=== PATIENT | male | born 1965 | race Caucasian/White ===

== ENCOUNTER 2018-08-13 07:14 | Day surgery (SDC) | payer OTHER ==
[~2018-08-13] VITALS: Ht 180.3 cm; Wt 83.4 kg
[~2018-08-13 07:14] MED LIST: CEPH500 PO; CYCL10 PO; DIAZ10 PO; DOCU100 PO; Excedrin Extra1 EACH PO; GABA100 PO; HYDACE5 PO; HYDMOR2 PO; IBUP800 PO; META800 PO; METPRE4DP PO; NAPR220; NAPR220 PO; NAPR550 PO; OXYACE7.5T; OXYC5 PO; PRED20 PO; Percocet 10-321 EACH PO; RXCEPH500 PO; RXHYDACE PO; RXMETA800 PO
--- NOTE | 2018-08-13 08:20 | NUR ---
08/13/18 0820 Aimee Cotton WHEN DISCUSSED PT LAYING ON HIS LEFT SIDE, HE SHOWED ME A QUARTER SIZED OPEN SORE ON HIS LATERAL THIGH THAT HE WAS CONCERNED ABOUT. I COVERED IT WITH ANTIBIOTIC OINTMENT AND A BANDAID,PT SATISFIED.
== END 2018-08-13 09:08 | disposition home or self-care (01) ==
LOC: ORSCSDS 07:14
PROVIDERS: Internal Medicine Gastroenterology
PROC: 0DBG8ZX Excision of Left Large Intestine, Via Natural or Artificial Opening Endoscopic, Diagnostic (ICD-10-PCS; principal; 2018-08-13 08:30)
DX: R10.32 Left lower quadrant pain (principal); K57.30 Diverticulosis of large intestine without perforation or abscess without bleeding; K64.8 Other hemorrhoids; I10 Essential (primary) hypertension; I48.91 Unspecified atrial fibrillation; F32.9 Major depressive disorder, single episode, unspecified; F17.210 Nicotine dependence, cigarettes, uncomplicated; Z79.899 Other long term (current) drug therapy
CPT/HCPCS: 88305; J1980; J2405; J2704; J7120

== ENCOUNTER 2024-12-24 17:04 | Emergency (ER) | payer OTHER ==
[~2024-12-24] VITALS: Ht 177.8 cm; Wt 79.4 kg
[2024-12-24 18:05] LABS: BASOPHILS ABSOLUTE AUTO 0.06 K/mm3 (0.00-0.23); BASOPHILS PERCENT AUTO 1 % (0-2); EOSINOPHILS ABSOLUTE AUTO 0.01 K/mm3 (0.00-0.68); EOSINOPHILS PERCENT AUTO 0 % (0-6); Hematocrit 36.1 % (37.0-53.0); Hemoglobin 12.5 g/dL (13.5-17.5); IMMATURE GRAN ABSOLUTE AUTO 0.08 K/mm3 (0.00-0.10); IMMATURE GRAN PERCENT AUTO 1 % (0-1); LYMPHOCYTES ABSOLUTE AUTO 1.20 K/mm3 (0.84-5.20); LYMPHOCYTES PERCENT AUTO 13 % (21-46); MONOCYTES ABSOLUTE AUTO 1.09 K/mm3 (0.16-1.47); MONOCYTES PERCENT AUTO 12 % (4-13); Mean Corpuscular HGB Conc 34.6 g/dL (31.5-36.5); Mean Corpuscular Volume 93 fL (80-100); NEUTROPHILS ABSOLUTE AUTO 6.91 K/mm3 (1.96-9.15); NEUTROPHILS PERCENT AUTO 74 % (41-73); NRBC ABSOLUTE 0.00 K/mm3 (0.00-0.02); NRBC Auto 0.0 /100 WBC (0.0-0.2); Platelet Count 161 K/mm3 (150-400); RDW Coefficient Variation 17.4 % (11.7-14.2); RDW Standard Deviation 59.0 fL (35.1-46.3)
[2024-12-24 18:22] LABS: Prothrombin Time Results 12.0 Sec (9.7-11.5)
[2024-12-24 18:54] LABS: Source, Urine Clean Catch
[2024-12-24 18:58] LABS: Alanine Aminotransfer (ALT/SGP 450.0 U/L (12-78); Albumin, Blood 3.3 g/dL (3.4-5.0); Anion Gap 14.0 mmol/L (3-11); Aspartate Aminotrans (AST/SGOT 514.0 U/L (12-37); Bilirubin, Total 24.6 mg/dL (0.1-1.0); Blood Urea Nitrogen 4.0 mg/dL (8-24); CO2, Blood 21.0 mmol/L (21-32); Calcium, Blood 9.2 mg/dL (8.5-10.1); Chloride, Blood 95.0 mmol/L (98-108); Creatinine, Blood 0.72 mg/dL (0.60-1.20); Glucose, Blood 149.0 mg/dL (70-99); Potassium, Blood 3.3 mmol/L (3.5-5.5); Sodium, Blood 127.0 mmol/L (136-145)
[2024-12-24 19:08] LABS: Albumin/Globulin Ratio 0.8 (0.8-1.8); Globulin, Blood 4.1 g/dL (2.2-4.0); Total Protein, Blood 7.4 g/dL (6.4-8.2)
[2024-12-24 19:17] LABS: Color, Urine Amber (P-Yellow); Glucose Qualitative, Urine Neg (Neg); Ketones, Urine Neg (Neg); Leukocyte Esterase, Urine 1+ (Neg); Protein, Urine 2+ (Neg); Specific Gravity, Urine 1.005 (1.003-1.022); Urobilinogen, Urine 2+ (Normal)
[2024-12-24 19:33] LABS: Bilirubin, Urine 3+ (Neg)
[2024-12-24 19:35] LABS: Red Blood Cells, Urine 0-2 /hpf (0-2)
[2024-12-25] VITALS: BP 149/94
== END 2024-12-25 00:10 | disposition short-term general hospital (02) ==
LOC: ER 17:04
PROVIDERS: Student in an Organized Health Care Education/Training Program
DX: K72.00 Acute and subacute hepatic failure without coma (principal); K85.90 Acute pancreatitis without necrosis or infection, unspecified; K86.9 Disease of pancreas, unspecified; F10.90 Alcohol use, unspecified, uncomplicated; E80.6 Other disorders of bilirubin metabolism; Z79.82 Long term (current) use of aspirin; Z79.899 Other long term (current) drug therapy; Z87.891 Personal history of nicotine dependence
CPT/HCPCS: 74177; 80053; 81001; 83690; 84484; 85025; 85610; 85730; 87086; 93005; 93010; 96360-59; 99285-25; A9270; J7120; Q9967

== ENCOUNTER 2025-03-12 05:39 | Day surgery (SDC) | payer OTHER ==
[2025-03-12] VITALS (8 sets, daily range): BP systolic 106–142; BP diastolic 74–86
[~2025-03-12] VITALS: Ht 175.3 cm; Wt 79.0 kg
[~2025-03-12 05:39] MED LIST changes: +Naltrexone HCl50 MG PO; +OXYC10ER PO
[2025-03-12] MEDS ORDERED: CeFAZolin Sodium 2,000 MG in NS 100 ML IV SCH (06:20)
[2025-03-12] MEDS ORDERED: Bupivacaine 0.5% HCl 5 MG/ML 30MLVIAL ONE (07:01)
[2025-03-12] MEDS ORDERED: FentaNYL Citrate 50 MCG/ML 2 ML Injection ONE (07:08)
[2025-03-12] MEDS ORDERED: Dexamethasone Sod Phos 10 MG/ML 1ML VIAL ONE (07:09)
[2025-03-12] MEDS ORDERED: Ondansetron HCl 2 MG / ML 2ML Vial ONE (07:09)
[2025-03-12] MEDS ORDERED: FentaNYL Citrate 50 MCG/ML 2 ML Injection IV PRN ×3 (07:10→07:15)
[2025-03-12] MEDS ORDERED: Metoclopramide HCl 5MG / ML 2ML Vial IV PRN (07:10)
[2025-03-12] MEDS ORDERED: Midazolam HCl 1MG / ML 2ML Vial IV PRN (07:15)
[2025-03-12] MEDS ORDERED: Ondansetron HCl 2 MG / ML 2ML Vial IV PRN (07:15)
[2025-03-12] MEDS ORDERED: Phenylephrine HCl 100 MCG/ML-NS 10MLSYR (1MG/10ML) ONE (07:59)
[2025-03-12] MEDS ORDERED: Ketorolac Tromethamine 30mg Vial ONE (07:59)
--- NOTE | 2025-03-12 09:09 | NUR ---
Discharge instructions reviewed with patient. Patient verbalizes understanding. Copy given to patient to take home. Patient States Post-Procedure ride home has been arranged. Discharged via wheelchair to private car for ride home.
== END 2025-03-12 23:00 | disposition home or self-care (01) ==
LOC: ORSCMMR 05:39 → ORD 07:30 → ORSCMMR 07:30
PROVIDERS: Student in an Organized Health Care Education/Training Program
PROC: 0JH63WZ Insertion of Totally Implantable Vascular Access Device into Chest Subcutaneous Tissue and Fascia, Percutaneous Approach (ICD-10-PCS; principal; 2025-03-12 07:30)
PROC: B543ZZA Ultrasonography of Right Jugular Veins, Guidance (ICD-10-PCS; principal; 2025-03-12 07:30)
PROC: 05HM33Z Insertion of Infusion Device into Right Internal Jugular Vein, Percutaneous Approach (ICD-10-PCS; principal; 2025-03-12 07:30)
DX: C25.0 Malignant neoplasm of head of pancreas (principal)
CPT/HCPCS: 77001; 82947; C1788; J0690; J1100; J1642; J1885; J2250; J2371; J2405; J2704; J3010; J7120